=== PATIENT | male | born 1970 | race Caucasian/White ===

== ENCOUNTER 2018-11-12 07:49 | Day surgery (SDC) | payer OTHER ==
[~2018-11-12] VITALS: Ht 170.2 cm; Wt 111.0 kg
[2018-11-12 08:25] VITALS: Ht 170.2 cm; Wt 111.0 kg
[2018-11-12] MEDS ORDERED: ATORVASTATIN (08:30)
[2018-11-12] MEDS ORDERED: ALFUZOSIN (08:30)
[2018-11-12] MEDS ORDERED: OMEGA (08:30)
[2018-11-12] MEDS ORDERED: ASA (08:30)
[2018-11-12] MEDS ORDERED: LIPITOR (08:30)
[2018-11-12 08:43] VITALS: BP 113/64; PULSE 52; RESP 22
[2018-11-12] MEDS ORDERED: FENTAnyl 50 MCG/ML VIAL ONE (09:48)
[2018-11-12] MEDS ORDERED: MIDAZOLAM 1 MG/ML 2 ML INJ ONE ×2 (09:48)
[2018-11-12 09:56] VITALS: BP 107/65; PULSE 52; RESP 20
== END 2018-11-12 10:47 | disposition home or self-care (01) ==
LOC: GIL 07:49
PROVIDERS: ATTEND Internal Medicine Gastroenterology
DX: Z12.11 Encounter for screening for malignant neoplasm of colon (principal); D12.3 Benign neoplasm of transverse colon; K57.30 Diverticulosis of large intestine without perforation or abscess without bleeding
CPT/HCPCS: 45380; 88305; J2250; J3010; Z7610